=== PATIENT | female | born 1940 | race Hispanic/Latino ===

== ENCOUNTER 2023-10-15 19:27 | Emergency (ER) | payer OTHER, MEDICARE ==
[~2023-10-15] VITALS: Ht 152.4 cm; Wt 99.8 kg
[2023-10-15 20:08] LABS: HEMATOCRIT 35.6 % (36-48); MEAN CORPUSCULAR HEMOGLOBIN 27.9 pg (27.0-33.0); MEAN CORPUSCULAR VOLUME 87.3 fL (79-99); PLATELET COUNT (AUTO) 165 K/uL (130-400); RED BLOOD CELL COUNT(AUTO) 4.08 MIL/uL (4.00-5.50); RED CELL DISTRIBUTION WIDTH 14.6 % (11.0-15.5); WHITE BLOOD COUNT (AUTO) 8.8 K/uL (4.8-10.8)
[2023-10-15] MEDS: SOLU-MEDROL 125MG VIAL IVP SCH (20:12)
[2023-10-15 20:30] LABS: CREATININE 1.1 mg/dL (0.5-1.5); POTASSIUM 4.5 mmol/L (3.5-5.1)
[2023-10-15 20:36] LABS: ALBUMIN 2.9 g/dL (3.5-5.0); BILIRUBIN,TOTAL 0.9 mg/dL (0.2-1.0); TOTAL PROTEIN, SERUM 6.8 g/dL (6.0-8.3)
[2023-10-15 21:07] LABS: LYMPHOCYTES % (MANUAL) 15 % (22-44); MONOCYTES % (MANUAL) 4 % (2-9); SEGMENTED NEUTROPHILS % 81 % (40-70); TOTAL CELLS COUNTED 100
[2023-10-15 21:08] LABS: MAN.DIFF COMMENT-IMPRESSION MANUAL DIFFERENTIAL; PLATELET MORPHOLOGY COMMENT ADEQUATE
[2023-10-15] MEDS ORDERED: IPRNEB IH (22:10)
[2023-10-15] MEDS ORDERED: PRED20TA3 PO (22:10)
[2023-10-15] MEDS ORDERED: ALBU2.5V2 IH (22:10)
[2023-10-15 23:07] VITALS: BP 128/62; PULSE 82; RESP 18; O2SAT 97
== END 2023-10-15 23:37 | disposition home or self-care (01) ==
LOC: EDH 19:27
DX: U07.1 COVID-19 (principal); J44.1 Chronic obstructive pulmonary disease with (acute) exacerbation; I10 Essential (primary) hypertension; E11.40 Type 2 diabetes mellitus with diabetic neuropathy, unspecified; Z95.2 Presence of prosthetic heart valve; Z95.810 Presence of automatic (implantable) cardiac defibrillator
CPT/HCPCS: 99285; 96374; 71045; 80053; 85025; 36415; 93005; J2930